=== PATIENT | female | born 1990 | race Caucasian/White ===

== ENCOUNTER 2025-03-14 19:20 | Emergency (ER) | payer OTHER, SELFPAY ==
[2025-03-14 19:23] VITALS: BP 159/107
[2025-03-14 20:37] VITALS: BP 133/77
[2025-03-14] MEDS: TORADOL 30 MG IM (20:48)
--- NOTE | 2025-03-14 20:48 | ED.GENMED ---
History of Present Illness
General
Chief Complaint: Ear Problem
Source: patient
Exam Limitations: none
Time Seen by Provider: 03/14/25 19:51
Nursing documentation reviewed up to this point in time: agreed with
History of Present Illness
History of Present Illness:
Patient is a 34 year old female with no significant PMH who presents to the ED complaining of right ear pain. Patient reports pain began Tuesday and was seen at Urgent Care on Tuesday where she was prescribed azithromycin and ofloxacin. Patient
reports no relief from one dose of abx and mild relief with OTC ibuprophen of 400mg q 6h.
Review of Systems
Review of Systems
Allergies reviewed?: Yes
All Other Systems: ROS reviewed and negative except as documented in HPI and ROS
Constitutional: Reports no symptoms
EENT: Reports other (right ear pain)
Respiratory: Reports no symptoms
Cardiac: Reports no symptoms
ABD/GI: Reports no symptoms
: Reports no symptoms
Musculoskeletal: Reports no symptoms
Skin: Reports no symptoms
Neurological: Reports no symptoms
Endocrine: Reports no symptoms
Hematologic/Lymphatic: Reports swollen glands (right preauricular and submental)
Phy Exam
General Physical Exam
General Presentation: well appearing
General age: appears stated age
General Skin: warm and dry
General Habitus: normal
General Mental: alert
ENT Exam
ENT Exam: other (ear canal stenosis)
Eye Exam
Eye Exam: PERRL
Cardiovascular Exam
Cardiovascular Exam: normal peripheral pulses
Pulmonary Exam
Pulmonary Exam: no respiratory distress
Course
Orders/Labs/Results
Orders:
Orders
03/14/25 19:38
Prednisone [Deltasone] 50 mg PO NOW STA
Tramadol HCl [Ultram] 50 mg PO NOW STA
03/14/25 20:46
Ketorolac [Toradol] 30 mg IM NOW STA
Vital Signs
Initial and Last Documented VS:
Initial Vital Signs
Temp Pulse Resp BP Pulse Ox
99.5 F 98 18 159/107 100
03/14/25 19:23 03/14/25 19:23 03/14/25 19:23 03/14/25 19:23 03/14/25 19:23
Last Documented Vital Signs
Temp Pulse Resp BP Pulse Ox
99 F 86 18 133/77 97
03/14/25 20:37 03/14/25 20:37 03/14/25 20:37 03/14/25 20:37 03/14/25 20:54
MDM/Problems Addressed
Differential Diagnosis Includes:
otitis externa
otitis media
TM rupture
*Pulse Oximetry
SaO2: 97
Oxygen Mode of Delivery: Room air
Patient hypoxic: no
*Critical Care Note
Total Time (30-74mins, 75-104mins- exclusive of procedures): Not Applicable
ED Attending Note
-
Portions of this chart may have been created with voice recognition software.� Occasional wrong word or��sound alike� substitutions may have occurred due to the inherent limitations of voice recognition software.
Discharge Plan
Departure
Patient Disposition: Home (Routine Discharge)
Date of Disposition: 03/14/25
Time of Disposition: 20:32
Patient with high blood pressure during this ER visit?: No
Condition: Good
Discharge Problem:
Acute Otitis Externa
Instructions: Outer Ear Infection (DC)
Referrals:
Sai Felix MD [Active, Otology] - As needed
Activity Restrictions/Additional Instructions:
As we discussed apply ear drops over ear wick for the next 3 days then remove ear wick and continue the drops.
Ibuprophen 600mg with food every 6 hours as needed for pain
See ENT doctor if not A LOT BETTER in 4 days or not 100% better in 3 weeks
Continue antibiotic as prescribed
Interventions
Interventions:
*Risk Screen - Suicide Last Done: 03/14/25 19:23
*General Assessment Last Done: 03/14/25 20:35
*Neglect/Abuse Screening Last Done: 03/14/25 20:35
*ED- Fall Risk Assessment Last Done: 03/14/25 20:35
*ED COVID-19 Vaccine History Last Done: 03/14/25 20:35
Discharge Date and Time
Print Language: TELUGU
== END 2025-03-14 21:16 | disposition home or self-care (01) ==
LOC: EMR 19:20
PROVIDERS: EMERGENCY PHYSICIAN Emergency Medicine; FAMILY PHYSICIAN Family Medicine
DX: H60.501 Unspecified acute noninfective otitis externa, right ear (principal)
CPT/HCPCS: 99284; 96372